=== PATIENT | male | born 1980 | race Hispanic/Latino ===

== ENCOUNTER 2018-01-14 00:22 | Emergency (ER) | payer SELFPAY ==
[2018-01-14] MEDS ORDERED: ACETAMINOPHEN EXTRA STRENGTH 500 MG TABLET ONE (01:08)
[2018-01-14] MEDS ORDERED: IBUPROFEN 200 MG TAB ONE (01:13)
[2018-01-14] MEDS ORDERED: IBUPROFEN 400 MG TABLET ONE (01:13)
== END 2018-01-14 02:08 | disposition home or self-care (01) ==
LOC: EDH 00:22
DX: J10.1 Influenza due to other identified influenza virus with other respiratory manifestations (principal); E86.0 Dehydration; E11.9 Type 2 diabetes mellitus without complications
CPT/HCPCS: 87804